=== PATIENT | female | born 1995 | race Hispanic/Latino ===

== ENCOUNTER 2016-08-08 13:39 | Emergency (ER) | payer SELFPAY ==
--- NOTE | 2016-08-08 14:28 | ERRECORD ---
[facility] EMERGENCY RECORD HPI FOOT (13:55 [facility]) CHIEF COMPLAINT: Patient presents for evaluation of pain, Patient presents for evaluation of swelling. HISTORIAN: History provided by patient, 21F presents with complaints of right second toe pain. States it has been presents for the last one and a half days. Has noticed redness, and tried to remove the medial distal portion of her nail. has continuing pain. Denies trauma or other injury. MECHANISM OF INJURY: Unknown mechanism. LOCATION: Symptoms are localized, most severe in the second toe. QUALITY: Pain is sharp in nature. TIME COURSE: Gradual onset of symptoms, Symptoms are worsening. ASSOCIATED WITH: Associated with erythema. EXACERBATED BY: Patient's condition exacerbated by nothing. ROS (13:56 [facility]) CONSTITUTIONAL: Negative constitutional review of systems, Historian denies chills, denies fever. CARDIOVASCULAR: Negative cardiovascular review of systems, Historian denies chest pain, denies palpitations. RESPIRATORY: Negative respiratory review of systems, Historian denies cough, denies shortness of breath. GI: Negative gastrointestinal review of systems, Historian denies abdominal pain, denies constipation, denies diarrhea, denies nausea, denies vomiting. GENITOURINARY FEMALE: Negative genitourinary review of systems, Historian denies dysuria, denies frequency. SKIN: erythema, swelling, pain over right distal second toe. NEUROLOGIC: Negative neurologic review of systems, Historian denies headache. HEMO/LYMPHATIC: Normal hematologic/lymphatic system review, Historian denies abnormal blood clotting. PAST MEDICAL HISTORY (13:47 [facility]) MEDICAL HISTORY: Flu vaccine up to date, Tetanus immunization up to date, Pneumococcal vaccine not up to date, Migraines. FEMALE SURGICAL HISTORY: Patient's surgical history is not relevant to the management of the case. Patient has no surgical history, Patient has no surgical history. VERIFIED 08/08/16. PSYCHIATRIC HISTORY: Psychiatric history includes, anxiety. verified 08/08/16. SOCIAL HISTORY: Patient denies alcohol use, Patient denies drug use, Patient has no smoking history. FAMILY HISTORY: Family istory is not significant. No known family hisotry. VERIFIED 09/13/2014. KNOWN ALLERGIES &a-1R&a+25V*p+0X*[id number]*c202B*c15G*c2P*p-0X&a-25V&a+1R Name: Rekha Field : 1995 F21 MedRec: [id number] AcctNum: [id number] Prepared: Sat Aug 08, 2016 14:26 by Interface Page 1 of 3 pMD [facility] EMERGENCY RECORD Demerol: - Entered brand: Demerol Tab -- Entered brand: Demerol Tab -- Entered brand: Demerol Tab -- Entered brand: Demerol Tab -- Entered brand: Demerol Tab CURRENT MEDICATIONS (13:49 [facility]) None VITAL SIGNS (13:47 [facility]) VITAL SIGNS: BP: 125/74, Pulse: 77, Resp: 18 (Non-Labored), Temp: 98.1 (Oral), Pain: 7, O2 sat: 99 on Room Air, Time: 08/08/2016 13:47. PHYSICAL EXAM (13:56 [facility]) CONSTITUTIONAL: Vital signs reviewed, Patient afebrile, Pulse normal, Blood pressure normal, Respiratory rate normal, Patient appears non toxic, Patient appears pain free, Patient alert and oriented to person, place and time. NECK: Neck exam normal, Neck exam included findings of normal range of motion, Trachea midline, no meningeal signs, no cervical adenopathy, no tenderness. RESPIRATORY CHEST: Respiratory and chest exam normal, Respiratory exam included findings of no respiratory distress, Breath sounds clear. CARDIOVASCULAR: Cardiovascular assessment normal, Cardiovascular exam included findings of heart rate regular rate and rhythm, Heart sounds normal. ABDOMEN FEMALE: Abdominal exam included findings of abdomen nontender, Bowel sounds normal, no distension, no mass, no pulsatile masses, no peritoneal signs, no rigidity, no guarding, no rebound, Rovsing's sign absent. BACK: Back exam normal, Back exam included findings of normal inspection, range of motion normal, no tenderness. LOWER EXTREMITY: Foot erythema, right foot, Swelling of the foot noted, right foot, Foot tenderness, right foot, right second toe erythema and tenderness localized to medial aspect of the toenail. Patient removed distal medial aspect of the toenail. NEURO: Neuro exam normal, Neuro exam findings include patient oriented to person, place and time, Speech normal, Gait normal. SKIN: Skin exam normal, Skin exam included findings of skin warm, dry, and normal in color, no rash. DOCTOR NOTES (14:21 [facility]) TEXT: Patient presented with ingrown toenail. Tolerated removal well. No signs of infection. instructed to follow up with PMD or return if symptoms worsen. PATIENT STATUS: Patient has improved since arrival to emergency department. PATIENT PLAN: The patient will be discharged. PROBLEM LIST &a-1R&a+25V*p+0X*x1340V*c202B*c15G*c2P*p-0X&a-25V&a+1R Name: Rekha Field : 1995 MedRec: [id number] AcctNum: [id number] Prepared: Sat Aug 08, 2016 14:26 by Interface Page 2 of 3 pMD [facility] EMERGENCY RECORD No recorded problems DIAGNOSIS (14:20 [facility]) FINAL: PRIMARY: ingrown toenail. PRESCRIPTION No recorded prescriptions DISPOSITION PATIENT: Disposition Type: Discharge, Disposition: *Discharge Home. (14:20 [facility]) Patient left the department. (14:25 [facility]) Cleaning: LASHONDA=MD Ruba, Jose [facility]=SAM Mcguire, Wandy [facility]=SAM Peck, Coral &a-1R&a+25V*p+0X*[id number]*c202B*c15G*c2P*p-0X&a-25V&a+1R Name: Rekha Field : 1995 F2 MedRec: [id number] AcctNum: [id number] Prepared: Sat Aug 08, 2016 14:26 by Interface Page 3 of 3 pMD MTDD
--- NOTE | 2016-08-08 14:40 | PICIS ---
[facility] EMERGENCY RECORD TRIAGE ([facility] Aug 08, 2016 13:45 [facility]) TRIAGE NOTES: redness to toe noticed once day ago. ([facility] Aug 08, 2016 13:45 [facility]) PATIENT: NAME: Rekha Field, AGE: 21, GENDER: female, : [facility] 1995, TIME OF GREET: [facility] Aug 08, 2016 13:40, PREFERRED LANGUAGE: Macedonian, ETHNICITY: or , HIGH ALERT: HIGH ALERT 3, ECODE BILLING MAP: [facility], SSN: [id number], Zip Code: [address], KG WEIGHT: 63.50, , , PERSON ID: [id number], PAYMENT: [employer] Self Pay. ([facility] Aug 08, 2016 13:45 [facility]) PHONE: . (13:49) COMPLAINT: toe pain. ([facility] Aug 08, 2016 13:45 [facility]) ADMISSION: URGENCY: 5 Fast Track, ADMISSION SOURCE: Home, TRANSPORT: CAR, BED: TRIAGE. ([facility] Aug 08, 2016 13:45 [facility]) PROVIDERS: TRIAGE NURSE: Coral Peck RN. ([facility] Aug 08, 2016 13:45 [facility]) PREVIOUS VISIT ALLERGIES: Demerol. ([facility] Aug 08, 2016 13:45 [facility]) Demerol. (13:47 [facility]) KNOWN ALLERGIES Demerol: - Entered brand: Demerol Tab -- Entered brand: Demerol Tab -- Entered brand: Demerol Tab -- Entered brand: Demerol Tab -- Entered brand: Demerol Tab CURRENT MEDICATIONS (13:49 [facility]) None VITAL SIGNS (13:47 [facility]) VITAL SIGNS: BP: 125/74, Pulse: 77, Resp: 18 (Non-Labored), Temp: 98.1 (Oral), Pain: 7, O2 sat: 99 on Room Air, Time: 08/08/2016 13:47. NURSING ASSESSMENT: SKIN (13:49 [facility]) CONSTITUTIONAL: Complex assessment performed, Patient arrives ambulatory, Gait steady, History obtained from patient, Patient appears comfortable, Patient cooperative, Patient alert, Oriented to person, place and time, Skin warm, Skin dry, Skin normal in color, Mucous membranes pink, Mucous membranes moist, Patient is well-groomed, redness to right 2nd toe for the last few days. patient pulled an ingrown toenail from end of toe. PAIN: tender pain, on a scale 0-10 patient rates pain as 7, Nothing has been tried to alleviate the pain. SKIN: Skin assessment findings include skin warm, Skin dry, Skin normal in color, Inspection findings include redness, to distal phalange, 2nd right toe, red and swollen, tender to touch. SAFETY: Side rails up, Cart/Stretcher in lowest position, Call light within reach, Hospital ID band on. NURSING PROCEDURE: DISCHARGE NOTE (14:26 [facility]) &a-1R&a+25V*p+0X*[id number]*c202B*c15G*c2P*p-0X&a-25V&a+1R Name: Rekha Field : 1995 F21 MedRec: [id number] AcctNum: [id number] Prepared: Sat Aug 08, 2016 14:32 by Interface Page 1 of 5 pMD [facility] EMERGENCY RECORD DISCHARGE: Patient discharged to home, ambulating without assistance, driving self, unaccompanied, Summary of Care printed/ provided, Transition record given to patient, Discharge instructions given to patient, Simple or moderate discharge teaching performed, by SAM Saba, Discharge instructions and follow up reviewed with patient. Pt ambulatory to discharge desk., Above person(s) verbalized understanding of discharge instructions and follow-up care. BELONGINGS: Belongings remain with patient, Valuables remain with patient. NURSING PROCEDURE: WOUND CARE (14:15 [facility]) PATIENT IDENTIFIER: Patient actively involved in identification process, Patient's identity verified by patient stating name, Patient's identity verified by patient stating date. WOUND CARE: Wound care indicated to promote healing, Wound site: Right foot, 2nd digit, Local infiltration with. FOLLOW-UP: After procedure, simple dressing applied, using vaseline gauze 1/2 x 12 dressing, After procedure, on a scale 0-10 patient rates pain as 2, After procedure, capillary refill less than 2 seconds, After procedure, distal circulation intact, After procedure, distal motor intact, After procedure, distal sensation intact, After procedure, distal pulses present. NOTES: Patient tolerated procedure well. HPI FOOT (13:55 [facility]) CHIEF COMPLAINT: Patient presents for evaluation of pain, Patient presents for evaluation of swelling. HISTORIAN: History provided by patient, 21F presents with complaints of right second toe pain. States it has been presents for the last one and a half days. Has noticed redness, and tried to remove the medial distal portion of her nail. has continuing pain. Denies trauma or other injury. MECHANISM OF INJURY: Unknown mechanism. LOCATION: Symptoms are localized, most severe in the second toe. QUALITY: Pain is sharp in nature. TIME COURSE: Gradual onset of symptoms, Symptoms are worsening. ASSOCIATED WITH: Associated with erythema. EXACERBATED BY: Patient's condition exacerbated by nothing. ROS (13:56 [facility]) CONSTITUTIONAL: Negative constitutional review of systems, Historian denies chills, denies fever. CARDIOVASCULAR: Negative cardiovascular review of systems, Historian denies chest pain, denies palpitations. RESPIRATORY: Negative respiratory review of systems, Historian denies cough, denies shortness of breath. GI: Negative gastrointestinal review of systems, Historian denies abdominal pain, denies constipation, denies diarrhea, denies nausea, &a-1R&a+25V*p+0X*g9238Y*c202B*c15G*c2P*p-0X&a-25V&a+1R Name: Rekha Field : 1995 F21 MedRec: [id number] AcctNum: [id number] Prepared: Myron Aug 08, 2016 14:32 by Interface Page 2 of 5 pMD [facility] EMERGENCY RECORD denies vomiting. GENITOURINARY FEMALE: Negative genitourinary review of systems, Historian denies dysuria, denies frequency. SKIN: erythema, swelling, pain over right distal second toe. NEUROLOGIC: Negative neurologic review of systems, Historian denies headache. HEMO/LYMPHATIC: Normal hematologic/lymphatic system review, Historian denies abnormal blood clotting. PAST MEDICAL HISTORY (13:47 [facility]) MEDICAL HISTORY: Flu vaccine up to date, Tetanus immunization up to date, Pneumococcal vaccine not up to date, Migraines. FEMALE SURGICAL HISTORY: Patient's surgical history is not relevant to the management of the case. Patient has no surgical history, Patient has no surgical history. VERIFIED 08/08/16. PSYCHIATRIC HISTORY: Psychiatric history includes, anxiety. verified 08/08/16. SOCIAL HISTORY: Patient denies alcohol use, Patient denies drug use, Patient has no smoking history. FAMILY HISTORY: Family istory is not significant. No known family hisotry. VERIFIED 09/13/2014. PHYSICAL EXAM (13:56 [facility]) CONSTITUTIONAL: Vital signs reviewed, Patient afebrile, Pulse normal, Blood pressure normal, Respiratory rate normal, Patient appears non toxic, Patient appears pain free, Patient alert and oriented to person, place and time. NECK: Neck exam normal, Neck exam included findings of normal range of motion, Trachea midline, no meningeal signs, no cervical adenopathy, no tenderness. RESPIRATORY CHEST: Respiratory and chest exam normal, Respiratory exam included findings of no respiratory distress, Breath sounds clear. CARDIOVASCULAR: Cardiovascular assessment normal, Cardiovascular exam included findings of heart rate regular rate and rhythm, Heart sounds normal. ABDOMEN FEMALE: Abdominal exam included findings of abdomen nontender, Bowel sounds normal, no distension, no mass, no pulsatile masses, no peritoneal signs, no rigidity, no guarding, no rebound, Rovsing's sign absent. BACK: Back exam normal, Back exam included findings of normal inspection, range of motion normal, no tenderness. LOWER EXTREMITY: Foot erythema, right foot, Swelling of the foot noted, right foot, Foot tenderness, right foot, right second toe erythema and tenderness localized to medial aspect of the toenail. Patient removed distal medial aspect of the toenail. NEURO: Neuro exam normal, Neuro exam findings include patient &a-1R&a+25V*p+0X*m9581A*c202B*c15G*c2P*p-0X&a-25V&a+1R Name: Rekha Field : 1995 F21 MedRec: [id number] AcctNum: [id number] Prepared: Sat Aug 08, 2016 14:32 by Interface Page 3 of 5 pMD [facility] EMERGENCY RECORD oriented to person, place and time, Speech normal, Gait normal. SKIN: Skin exam normal, Skin exam included findings of skin warm, dry, and normal in color, no rash. EVENTS TRANSFER: Triage to Emergency Triage. (Sat Aug 08, 2016 13:45 [facility]) Emergency Triage to Emergency Room -02. (13:45 [facility]) Removed from Emergency Emergency Room -02. (14:25 [facility]) [facility]14:[facility] TEXT: Patient presented with ingrown toenail. Tolerated removal well. No signs of infection. instructed to follow up with PMD or return if symptoms worsen. PATIENT STATUS: Patient has improved since arrival to emergency department. PATIENT PLAN: The patient will be discharged. INGROWN TOE NAIL (14:21 [facility]) INGROWN TOE NAIL: Side and/or site verified, Patient identification confirmed, Sterile procedures observed, Verbal consent obtained, Ingrown toe nail removal indicated for pain, Digital block with, Partial toe nail removed, from the second toe on the right foot, medial nail fold, with scissors, There were no complications, After procedure, antibiotic ointment applied, After procedure, dressing applied, Patient tolerated the procedure well. PROBLEM LIST No recorded problems DIAGNOSIS (14:20 [facility]) FINAL: PRIMARY: ingrown toenail. DISPOSITION PATIENT: Disposition Type: Discharge, Disposition: *Discharge Home. (14:20 [facility]) Patient left the department. (14:25 [facility]) INSTRUCTION (14:20 [facility]) DISCHARGE: INGROWN TOENAIL, EXCISED. FOLLOWUP: DO ESPINOZA JOHN SCOTT, [facility], [address] [place] [address], . SPECIAL: Watch for spreading redness. either call or return to the ED if it worsens. Follow up with your PMD. Tylenol or Advil for Pain. PRESCRIPTION No recorded prescriptions IMAGING (14:28 [facility]) &a-1R&a+25V*p+0X*g5443B*c202B*c15G*c2P*p-0X&a-25V&a+1R Name: Rekha Field : 1995 F21 MedRec: [id number] AcctNum: [id number] Prepared: Myron Aug 08, 2016 14:32 by Interface Page 4 of 5 pMD [facility] EMERGENCY RECORD *DISCHARGE INSTRUCTIONS RECEIPT: Image captured from scanner. *SUPPLY CHARGE SHEET: Image captured from scanner. ADMIN DIGITAL SIGNATURE: MD Yeh Jason. [facility]14[facility]22 [facility] SAM Mcguire, Wandy. (14:28 [facility]) Cleaning: LASHONDA=MD Yeh Jason KMOR=SAM Mcguire, Wandy LGIB=SAM Peck, Coral &a-1R&a+25V*p+0X*a2326T*c202B*c15G*c2P*p-0X&a-25V&a+1R Name: Rekha Field : 1995 F21 MedRec: [id number] AcctNum: [id number] Prepared: Myron Aug 08, 2016 14:32 by Interface Page 5 of 5 pMD MTDD
== END 2016-08-08 14:24 | disposition home or self-care (01) ==
LOC: BURERS 13:39
DX: L60.0 Ingrowing nail (principal); G43.909 Migraine, unspecified, not intractable, without status migrainosus; F41.9 Anxiety disorder, unspecified
CPT/HCPCS: 11750

== ENCOUNTER 2017-07-16 03:12 | Emergency (ER) | payer SELFPAY | END 2017-07-16 03:30 | disposition home or self-care (01) | LOC: BURERS 03:12 | DX: J06.9 Acute upper respiratory infection, unspecified (principal); F41.9 Anxiety disorder, unspecified; G43.909 Migraine, unspecified, not intractable, without status migrainosus | CPT/HCPCS: 99283 ==

== ENCOUNTER 2017-12-27 06:32 | Emergency (ER) | payer SELFPAY ==
[2017-12-27] MEDS ORDERED: AMOXicillin 250 MG CAP ONE (06:52)
[2017-12-27] MEDS ORDERED: Ibuprofen 200 MG TAB ONE (06:52)
[2017-12-27] MEDS ORDERED: Lidocaine Viscous Sol 2% 15 ml UD Cup ONE (06:52)
== END 2017-12-27 07:04 | disposition home or self-care (01) ==
LOC: BURERS 06:32
DX: J03.90 Acute tonsillitis, unspecified (principal); F41.9 Anxiety disorder, unspecified; G43.909 Migraine, unspecified, not intractable, without status migrainosus
CPT/HCPCS: 87081; 87430; 99283

== ENCOUNTER 2019-01-13 19:49 | Emergency (ER) | payer OTHER, SELFPAY ==
[2019-01-13] MEDS ORDERED: AMOXicillin 250 MG CAP ONE (20:02)
[2019-01-13] MEDS ORDERED: Ibuprofen 800 MG TAB ONE (20:02)
== END 2019-01-13 20:05 | disposition home or self-care (01) ==
LOC: BURERS 19:49
DX: K08.89 Other specified disorders of teeth and supporting structures (principal)
CPT/HCPCS: 99282